=== PATIENT | male | born 1955 | race Caucasian/White ===

== ENCOUNTER 2017-08-09 22:22 | Observation (INO) | payer BC ==
[~2017-08-09] VITALS: Ht 188 cm; Wt 115.4 kg
[2017-08-09 22:54] LABS: HEMOGLOBIN 16.7 G/DL (12.5-16.6); MCHC 34.8 G/DL (30.0-36.0); MCV 94.9 FL (86-99); NRBC (%) 0.1 /100 WBC (0-0); PLATELET COUNT 240 K/uL (156-360); RBC DIS.WIDTH-CV 12.7 % (11.8-14.6); RBC DIS.WIDTH-SD 44.1 % (39-53); RED BLOOD COUNT 5.06 M/uL (4.00-5.50); WHITE BLOOD COUNT 13.8 K/uL (4.1-10.2)
[2017-08-09 23:06] LABS: CHLORIDE 104 mEq/L (99-109); POTASSIUM 4.5 mEq/L (3.7-5.4); SODIUM 138 mEq/L (136-147)
[2017-08-09 23:07] LABS: PTT 38.9 SEC (25-37)
[2017-08-09 23:08] LABS: GLUCOSE 139 mg/dL (70-99)
[2017-08-09 23:12] LABS: GFR ESTIMATE (CALCULATED) > 59 mL/min/ (58.99-99999)
[2017-08-09 23:13] LABS: UREA NITROGEN (BUN) 19 mg/dL (9-23)
[2017-08-09 23:17] LABS: TROP-I INTERPRETATION NEGATIVE; TROPONIN-I 0.01 ng/mL (0.0-0.30)
[2017-08-09] MEDS ORDERED: ADULT ASPIRIN R81 MG PO (23:50)
[2017-08-09] MEDS ORDERED: CARVEDILOL6.25 MG PO (23:50)
[2017-08-09] MEDS ORDERED: LISINOPRIL10 MG PO (23:50)
[2017-08-09] MEDS ORDERED: FLONASE16 G1 BOTH NARES (23:50)
[2017-08-09] MEDS ORDERED: LIPITOR40 MG PO (23:50)
[2017-08-10 01:22] VITALS: BP 137/65
[2017-08-10 01:58] LABS: D-DIMER ELISA < 150.00 ng/mLDDU (<230)
[2017-08-10 02:06] LABS: MAGNESIUM 2.3 mg/dL (1.3-2.7)
[2017-08-10 02:10] LABS: PHOSPHORUS 4.2 mg/dL (2.5-4.9)
[2017-08-10 02:58] LABS: HDL CHOLESTEROL 32 MG/DL (Desirable>=40); LDL CHOLESTEROL 45 mg/dL (Desirable<100); NON-HDL CHOLESTEROL 80 mg/dL (Desirable<160); TOTAL CHOLESTEROL 112 mg/dL (Desirable<200); TRIGLYCERIDES 173 MG/DL (Normal: <150)
[2017-08-10 03:07] LABS: APPEARANCE CLEAR ((CLEAR)); BILIRUBIN NEGATIVE; BLOOD SMALL; COLOR STRAW ((YELLOW)); GLUCOSE (STRIP) NEGATIVE; KETONES NEGATIVE; LEUKOCYTES NEGATIVE; NITRITE NEGATIVE; PROTEIN (STRIP) NEGATIVE; SPECIFIC GRAVITY 1.008 (1.000-1.030); UROBILINOGEN 0.2 MG/DL (0.2-1.0)
[2017-08-10 03:15] LABS: BACTERIA NONE SEEN /HPF; EPITHELIAL CELLS NONE SEEN /HPF; MUCUS TRACE /LPF; RED BLOOD CELLS 0-5 /HPF (0-5); UCUL ADDED? NO; WHITE BLOOD CELLS 0-5 /HPF (0-5)
[2017-08-10 05:49] LABS: TROP-I INTERPRETATION NEGATIVE; TROPONIN-I 0.03 ng/mL (0.0-0.30)
[2017-08-10 07:40] VITALS: BP 121/58
[2017-08-10 08:47] LABS: THYROTROPIN (TSH) 5.7 MIU/L (0.4-5.5)
[2017-08-10 10:58] LABS: BASOPHIL (%) 0.5 % (0-1); BASOPHIL COUNT 0.1 K/uL (0-0.1); EOSINOPHIL (%) 1.1 % (0-5); EOSINOPHIL COUNT 0.1 K/uL (0-0.3); HEMATOCRIT 46.1 % (38.0-50.0); HEMOGLOBIN 15.5 G/DL (12.5-16.6); IMMATURE GRANULOCYTE (%) 0.4 % (0.0-0.7); LYMPHOCYTE (%) 17.2 % (15-42); MCH 32.4 PG (29.0-34.0); MCHC 33.6 G/DL (30.0-36.0); MCV 96.4 FL (86-99); MONOCYTE (%) 7.7 % (3-12); MONOCYTE COUNT 0.9 K/uL (0-0.8); NEUTROPHIL (%) 73.1 % (45-76); NEUTROPHIL COUNT 8.4 K/uL (1.8-6.4); PLATELET COUNT 201 K/uL (156-360); RBC DIS.WIDTH-CV 12.7 % (11.8-14.6); RBC DIS.WIDTH-SD 45.4 % (39-53); RED BLOOD COUNT 4.78 M/uL (4.00-5.50); WHITE BLOOD COUNT 11.4 K/uL (4.1-10.2)
[2017-08-10 11:17] LABS: TROP-I INTERPRETATION NEGATIVE; TROPONIN-I 0.02 ng/mL (0.0-0.30)
[2017-08-10 12:11] VITALS: BP 134/65
== END 2017-08-10 15:15 | disposition home or self-care (01) ==
LOC: EME 22:22 → EDOF 08-10 00:08 → 4SOUTH 08-10 00:08 → ENRESERV 08-10 00:09 → 4SOUTH 08-10 01:05 → ENPENDDIS 08-10 14:40 → 4SOUTH 08-10 15:15
PROVIDERS: Emergency Medicine; Hospitalist; Physician Assistant
PROC: B246ZZZ Ultrasonography of Right and Left Heart (ICD-10-PCS; principal; 2017-08-10)
DX: I47.1 Supraventricular tachycardia (principal); I25.10 Atherosclerotic heart disease of native coronary artery without angina pectoris; I25.2 Old myocardial infarction; Z95.5 Presence of coronary angioplasty implant and graft; I08.3 Combined rheumatic disorders of mitral, aortic and tricuspid valves; I27.20 Pulmonary hypertension, unspecified; E78.5 Hyperlipidemia, unspecified; F17.200 Nicotine dependence, unspecified, uncomplicated; I10 Essential (primary) hypertension; Z88.0 Allergy status to penicillin
CPT/HCPCS: 71045; 80048; 80061; 81003; 83735; 84100; 84439; 84443; 84484; 85025; 85027; 85379; 85610; 85730; 93005; 93306; 99281; 99285; G0378; J0153; J1650; J7030